=== PATIENT | male | born 1955 | race Caucasian/White ===

== ENCOUNTER 2017-02-16 20:20 | Inpatient (IN) | payer BC, MEDICAID ==
[~2017-02-16] VITALS: Ht 190.5 cm; Wt 94.4 kg
[2017-02-16 20:50] VITALS: BP 185/125
--- NOTE | 2017-02-16 20:50 | NUR ---
TELE/JUNIOR HIGH SCHOOL TEACHER; RECEIVED PT FROM [facility] VIA AMBULANCE. RECEIVED REPORT FROM AMBULANCE [facility]. PT IS ALERT, AWAKE AND ORIENTED. WITH HL ON RAC. PT ADMITTED WITH THE C/O CHEST PAIN. PLACED ON TELEMETRY. PPT INSTRUCTED TO CALL FOR HELP. CALL LIGHT WITHIN REACH. AT THIS TIME OF ADMISSION PT DENIES CHEST PAIN.
--- NOTE | 2017-02-16 20:50 | NUR ---
TELE/WAFER PRODUCTION WORKER; ADMITTED A DIRECT PT FROM [facility] IN [place] BROU[place]HT BY AMBULANCE . REPORTS TAKEN FROM AMBULANCE STAFF NAMED TAVO. PT IS ALERT AWAKE AND ORIENTED X3. [facility] AMBULANCE STAFF SAID PT C/O CHEST PAIN. ATTHISTIME OF MY ADMISSION PT DENIES CHESTPAIN. HL ON RAC INTACT. BED ON LOWER POSITION AND LOCKED FOR SAFETUY. SIDE RAILS X 2 ARE UP FOR SAFETY.
--- NOTE | 2017-02-16 21:45 | NUR ---
TELE/NETWORK INFRASTRUCTURE ARCHITECT; I PLACED A CALL TO DR. CATERINA KWONG AND NOTIFIED HER FOR THIS ADMISSION FROM [place] WITH . SHE SAID SHE WILL PUT AN ORDERS.
[2017-02-16] MEDS ORDERED: LORAZEPAM 1 MG TABLET PO PRN (22:00)
[2017-02-16] MEDS ORDERED: NITROGLYCERIN 0.4 MG/TAB BOTTLE SL PRN (22:00)
[2017-02-16] MEDS ORDERED: MORPHINE SULFATE INJ 2 MG/ML DISP.SYRIN IV PRN ×2 (22:00)
[2017-02-16] MEDS ORDERED: ZOLPIDEM TARTRATE 5 MG TABLET PO PRN (22:00)
[2017-02-16] MEDS ORDERED: SIMVASTATIN 20 MG TABLET PO SCH (22:00)
[2017-02-16] MEDS ORDERED: SIMVASTATIN 20 MG TABLET ONE (23:25)
[2017-02-17] MEDS ORDERED: hydrALAZINE HCL 10 MG TABLET PO PRN (00:30)
[2017-02-17] MEDS ORDERED: MAG HYDROX/AL HYDROX/SIMETH 30 ML UDC ONE (00:45)
[2017-02-17] MEDS ORDERED: hydrALAZINE HCL 10 MG TABLET ONE (00:45)
--- NOTE | 2017-02-17 00:45 | NUR ---
TELE/ELECTROPHYSIOLOGY TECHNOLOGIST; PT C/O PONCE PAIN. MAALOX 30 MLPO Q6 PRN GIVEN ORDERED .
[2017-02-17] MEDS: MAG HYDROX/AL HYDROX/SIMETH 30 ML UDC PO PRN ×2 (00:46→07:12)
--- NOTE | 2017-02-17 00:50 | NUR ---
TELE/TUBE CLOSING MACHINE OPERATOR; BP 177/108 HYDRALAZINE 20 MG PO Q6 PRN FOR SBP > 160 WAS GIVEN.
[2017-02-17] MEDS ORDERED: LORAZEPAM 1 MG TABLET ONE (01:00)
--- NOTE | 2017-02-17 01:00 | NUR ---
TELE/SPEECH LANG PATH; DR. DIGGS CAME AND ASSESSED THE PT. ALSO I INFORMED HER PT BP AND C/O GAS PAIN.
--- NOTE | 2017-02-17 01:10 | NUR ---
TELE/MIXED SIGNAL DESIGN ENGINEER; PT VERY ANXIOUS ATIVAN 1 MG PO Q6PRN WAS GIVEN AT 0107.
[2017-02-17] MEDS ORDERED: IV NS 0.9% 1,000 ML IV PRN (02:00)
[2017-02-17] MEDS ORDERED: MAG HYDROX/AL HYDROX/SIMETH 30 ML UDC PO PRN (02:00)
--- NOTE | 2017-02-17 02:25 | NUR ---
IVF NS AT 80 ML / HOUR STARTED ORDERED.
[2017-02-17] MEDS ORDERED: ZOLPIDEM TARTRATE 5 MG TABLET ONE (02:42)
[2017-02-17] MEDS ORDERED: CARVEDILOL 3.125 MG TABLET ONE (02:42)
[2017-02-17] MEDS: CARVEDILOL 3.125 MG TABLET PO SCH ×2 (02:46→08:35)
--- NOTE | 2017-02-17 02:50 | NUR ---
AMBIEN 5 MG PO HS PRN GIVEN REQUESTED BY THE PT AND ORDERED BY DR. DIGGS.
[2017-02-17 03:53] VITALS: BP 160/109
[2017-02-17] MEDS ORDERED: ONDANSETRON HCL/PF 4 MG/2 ML VIAL ONE (04:57)
--- NOTE | 2017-02-17 05:00 | NUR ---
PT C/O NAUSEA ZOFRAN 4 MG IV Q4 PRN GIVEN BY THE RN.
[2017-02-17] MEDS: ONDANSETRON HCL/PF 4 MG/2 ML VIAL IVP PRN ×2 (05:02→08:39)
--- NOTE | 2017-02-17 06:30 | NUR ---
I CALLED THE LAB. SWAB FROM [facility] FOR MRSA OBTAINED READY TO BE PICKED UP.
--- NOTE | 2017-02-17 07:00 | NUR ---
TELE/CRATE REPAIRER; PT WAS ON AND OFF WANTS THE IVF DISCONNECTED . PT WANTS TO GO OUT FOR FRESH AIR. SO I TOLD THE PT. TO IN BED AND REST AND RELAX. PT REFUSED THE DVT PUMP FOR HIS LOWER LEGS. WILL CONTINUE TO MONITOR. CALL LIGHT WITHIN REACH. PT WAS ON SR 96. WILL ENDORASE TO THE DAY SHIFT NURSE.
--- NOTE | 2017-02-17 07:20 | NUR ---
RN NOTES RECEIVED PATIENT RESTING COMFORTABLY IN BED, AWAKE ALERT AND VERBALLY RESPONSIVE, ABLE TO MAKE NEEDS KNOWN. RESPIRATIONS EVEN AND UNLABORED. NO FACIAL GRIMACING OR GUARDED MOVEMENT NOTED, IN NO APPARENT PAIN OR DISCOMFORT. IV ACCESS TO RIGHT HAND NOTED PATENT AND INTACT NO REDNESS OR INFILTRATION NOTED. SAFETY MEASURES IN PLACE,PT REFUSES PLACEMENT OF DVT PUMPS NURSING EDUCATION REINFORCED CONTINUES TO REFUSE, WILL CONTINUE TO MONITOR.
[2017-02-17 07:25] LABS: BASOPHILS % (AUTO) 0.1 % (0.0-2.0); EOSINOPHILS % (AUTO) 0.3 % (0.0-6.0); HEMATOCRIT 44 % (39-51); LYMPHOCYTES # (AUTO) 0.7 /CMM (0.8-4.8); LYMPHOCYTES % (AUTO) 5.2 % (20.0-44.0); MEAN CORPUSCULAR HEMOGLOBIN 29 PG (26.0-33.0); MEAN CORPUSCULAR HGB CONC 34 g/dl (31.0-36.0); MEAN CORPUSCULAR VOLUME 84 fL (80-96); MONOCYTES # (AUTO) 0.7 /CMM (0.1-1.30); MONOCYTES % (AUTO) 5.1 % (2.0-12.0); NEUTROPHILS # (AUTO) 11.4 /CMM (1.8-8.9); NEUTROPHILS % (AUTO) 89.3 % (43.0-81.0); PLATELET COUNT (AUTO) 225 /CMM (150-450); RDW COEFFICIENT OF VARIATION 13.6 (11.5-15.0); RED BLOOD CELL COUNT(AUTO) 5.21 MIL/uL (4.5-6.0); WHITE BLOOD COUNT (AUTO) 12.7 K/uL (4.3-11.0)
[2017-02-17] MEDS ORDERED: PANTOPRAZOLE 40 MG TABLET.DR PO SCH (07:30)
[2017-02-17 07:38] LABS: INR 0.97 (0.87-1.13); PROTHROMBIN TIME 10.1 SECS (9.5-12.7)
[2017-02-17 07:48] LABS: CALCIUM, SERUM 8.8 mg/dL (8.5-10.1); CREATININE 1.5 mg/dL (0.6-1.3); PHOSPHORUS 2.4 mg/dL (2.5-4.9); POTASSIUM 4.1 mmol/L (3.5-5.1)
[2017-02-17] MEDS ORDERED: METO25TA20 PO (08:32)
[2017-02-17] MEDS ORDERED: FINA5TAB11 PO (08:32)
[2017-02-17] MEDS ORDERED: FAMO20TA8 PO (08:32)
[2017-02-17] MEDS ORDERED: RIVA10TA PO (08:32)
[2017-02-17] MEDS ORDERED: ASPIRIN 81 MG TAB.CHEW PO SCH (09:00)
[2017-02-17] MEDS ORDERED: hydrALAZINE HCL 50 MG TABLET PO SCH (09:00)
[2017-02-17] MEDS ORDERED: NITROGLYCERIN 30 GM TUBE TP SCH (09:00)
[2017-02-17 09:40] VITALS: BP 149/89
--- NOTE | 2017-02-17 10:20 | NUR ---
RN NOTES PATIENT WANTING TO GO AGAINST MEDICAL ADVICE AT THIS TIME, EXPLAINED TO PATIENT THAT HOSPITALIST WILL SEE HIM AND EXPLAINED RISKS CONTINUES TO STATE "I JUST NEED TO GO AND LEAVE THIS PLACE" WILL HAVE PATIENT SIGN AMA FORM, IV ACCESS TO RAC AND RIGHT HAND REMOVED.
--- NOTE | 2017-02-17 10:27 | NUR ---
RN NOTES ALL NON ADMIN MEDICATIONS ADMINISTERED BY CATTLE TESTER, WILL CONTINUE TO MONITOR
--- NOTE | 2017-02-17 10:40 | NUR ---
MICKEY AMA DISCHARGE NOTES PT SIGNED AMA FORM AND ASSISTED TO LOBBY BY RN Addendum: 02/17/17 at 1052 by MUSA STARKEY RN RN NOTES PATIENT REFUSED TO SIGN BELONGINGS LIST
== END 2017-02-17 10:40 | disposition left against medical advice (07) | DRG 190 ==
LOC: TELE 20:20
PROVIDERS: ADMIT Internal Medicine; ATTEND Internal Medicine
DX: I21.4 Non-ST elevation (NSTEMI) myocardial infarction (principal); I12.9 Hypertensive chronic kidney disease with stage 1 through stage 4 chronic kidney disease, or unspecified chronic kidney disease; F41.9 Anxiety disorder, unspecified; F32.9 Major depressive disorder, single episode, unspecified; N18.9 Chronic kidney disease, unspecified; F19.90 Other psychoactive substance use, unspecified, uncomplicated
CPT/HCPCS: 36415; 71045-TC; 80048-TC; 80061-TC; 82150-TC; 83690-TC; 83735-TC; 84100-TC; 84484-TC; 85025-TC; 85610-TC; 85730-TC; 87081-TC; 93307-TC; J2405; J7030